=== PATIENT | male | born 1995 | race Two or more races ===

== ENCOUNTER 2022-03-04 00:38 | Emergency (ER) | payer SELFPAY ==
[2022-03-04] MEDS ORDERED: Methadone 10 MG Tab PO ONE (01:03)
[2022-03-04] MEDS ORDERED: Sodium Chloride 0.9% 10 ML Syringe FLUSH PRN (01:06)
[2022-03-04] MEDS ORDERED: Sodium Chloride 0.9% 1,000 ML IV ONE (01:06)
[2022-03-04] MEDS ORDERED: Ondansetron 4 MG/2 ML SDV IVPUSH ONE (01:15)
[2022-03-04] MEDS ORDERED: hydrOXYzine HCl 50 MG/ML SDV IM ONE (01:53)
[2022-03-04 02:12] LABS: ACETAMINOPHEN < 2 ug/mL (<2)
== END 2022-03-04 03:05 ==
LOC: FB.ED 00:38
DX: F11.13 Opioid abuse with withdrawal (principal); F41.9 Anxiety disorder, unspecified; F32.A Depression, unspecified; Z20.822 Contact with and (suspected) exposure to COVID-19; F17.210 Nicotine dependence, cigarettes, uncomplicated
CPT/HCPCS: 36415; 80053; 80143; 80179; 80307; 84439; 84443; 85025; 96372; 96374; 99283; 99285-25; A9270-GY; J2405; J3410; J3490; J7030; U0002

== ENCOUNTER 2023-04-08 14:08 | Emergency (ER) | payer SELFPAY ==
[2023-04-08] MEDS ORDERED: Lidocaine 1% 20 ML MDV INFILT ONE (14:09)
[2023-04-08] MEDS ORDERED: Bacitracin Oint 1 GM U/D Packet TOP ONE (14:19)
[2023-04-08] MEDS ORDERED: Diphtheria,Pertussis(Acell),Tetanus Vaccine 0.5 ML Syringe IM ONE (14:19)
== END 2023-04-08 15:07 | disposition home or self-care (01) ==
LOC: FB.ED 14:08
DX: S61.411A Laceration without foreign body of right hand, initial encounter (principal); Z72.0 Tobacco use; Z23 Encounter for immunization; W26.8XXA Contact with other sharp object(s), not elsewhere classified, initial encounter
CPT/HCPCS: 12002; 73130-RT; 90471; 90715; 99283-25

== ENCOUNTER 2024-07-23 00:43 | Emergency (ER) | payer SELFPAY ==
[2024-07-23] MEDS ORDERED: Lidocaine 2% 20 ML MDV INFILT ONE (00:44)
[2024-07-23] MEDS: Amoxicillin/Clavulanate K 875-125 MG Tab PO ONE (02:41)
== END 2024-07-23 02:56 | disposition home or self-care (01) ==
LOC: FB.ED 00:43
DX: S01.452A Open bite of left cheek and temporomandibular area, initial encounter (principal); F17.200 Nicotine dependence, unspecified, uncomplicated; Z88.8 Allergy status to other drugs, medicaments and biological substances; W54.0XXA Bitten by dog, initial encounter
CPT/HCPCS: 12014; 99283; A9270-GY